=== PATIENT | male | born 2000 | race Caucasian/White ===

== ENCOUNTER 2023-09-26 15:45 | Emergency (ER) | payer BC, SELFPAY ==
[2023-09-26 15:46] VITALS: BP 123/79; PULSE 118; RESP 17; TEMP 36.9; O2SAT 97; BMI 31.3
[2023-09-26 16:30] VITALS: BP 102/47; PULSE 113; O2SAT 97
--- NOTE | 2023-09-26 16:54 | PC.NURSE ---
Pt given drink and crackers for PO challenge
--- NOTE | 2023-09-26 16:56 | HMH.EDGENADL ---
Discharge Plan Disposition Patient Disposition: Home, Self-Care Condition: Good Prescriptions Prescriptions: New pantoprazole 40 mg tablet,delayed release (DR/EC) 40 mg PO DAILY Qty: 30 0RF Zyrtec 10 mg capsule 10 mg PO DAILY Qty: 30 0RF fluticasone propionate [Flonase Allergy Relief] 50 mcg/actuation spray,suspension 1 spray intranasal BID Qty: 16 0RF Rx Instructions: administer into each nostril amoxicillin-pot clavulanate 875-125 mg tablet 1 tab PO BID Qty: 20 0RF ondansetron HCl 4 mg tablet 4 mg PO Q8H PRN (Reason: nausea and vomiting) 4 Days Qty: 12 0RF Referrals Follow up/Referrals: Oh Bran MD [Primary Care Provider] - See instructions Activity Restrictions/Add. Instructions Additional Instructions/Restrictions: You were evaluated in the emergency department today. 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 Make sure that you are staying hydrated. Follow-up with your primary care provider over the next week. Return to the emergency department for new or worsening symptoms. Clinical Impressions Clinical Impression: Sinusitis, Acute viral syndrome, Nausea & vomiting, Gastro-esophageal reflux Stand Alone Forms Stand Alone Forms: Work/School Release Instructions Patient Instructions: DI for Diarrhea and Traveler's Diarrhea -- Adult, DI for Viral Upper Respiratory Infection-Child, DI for Nausea -- Adult Discharge ED Provider: [facility] HPI General Chief complaint: Nausea/Vomiting/Diarrhea Stated complaint: vomitting, swollen Time Seen by Provider: 09/26/23 16:02 Mode of Arrival: Ambulatory Source of Information: Patient Limitations: No Limitations Description of Symptoms (Recalled from ER Triage Doc. by RN): pt to the ED with nausea and multiple episodes of vomiting since 11am this morning. pt is being treated for an upper respiratory infection since last week. History of Present Illness HPI narrative: This patient is a 22-year-old male presenting to the emergency department for evaluation with concern for multiple episodes of emesis since 11 AM this morning. Patient reports that he was diagnosed with an upper respiratory viral infection last week and was prescribed steroids, and he has been also taking Sudafed. The nausea and vomiting started today. He notes generalized abdominal pain and cramping, but no localized abdominal pain. No changes in bowel movements noted. He continues to have cough and congestion as well as a sore throat. No other concerns noted at this time. Related Data Previous Rx's Medication Instructions Recorded amoxicillin 875 mg-potassium 1 tab PO BID #20 tabs 09/26/23 clavulanate 125 mg tablet cetirizine 10 mg capsule (Zyrtec) 10 mg PO DAILY #30 caps 09/26/23 fluticasone propionate 50 1 spray intranasal BID #16 grams 09/26/23 mcg/actuation nasal spray,suspension (Flonase Allergy Relief) ondansetron HCl 4 mg tablet 4 mg PO Q8H PRN nausea and 09/26/23 vomiting 4 days #12 tabs pantoprazole 40 mg tablet,delayed 40 mg PO DAILY #30 tabs 09/26/23 release Allergies Allergy/AdvReac Type Severity Reaction Status Date / Time No Known Allergies Allergy Verified 05/17/18 16:24 [facility] Disclaimer: The information contained in this section may have been updated after the patient was seen, as this information can be updated by other users. Social History Smoking Status: Never smoker alcohol intake: never current occupational status: employed Travel in the last 8 weeks: None ROS Obtained: Yes All systems reviewed & no additional complaints except as documented Physical Exam General General appearance: alert and in no apparent distress Head Head exam: atraumatic and normocephalic Eye Eye exam: Present normal appearance, PERRL and EOMI ENT ENT exam: Present normal oropharynx, mucous membranes moist, normal external ear exam
[2023-09-26 17:01] VITALS: BP 119/81; PULSE 119; O2SAT 95
--- NOTE | 2023-09-26 17:08 | PC.NURSE ---
PT TOLERATING PO CRACKERS AND SPRITE, PT REPORTS FREQUENT BELCHING. MD AWARE, ORDERS RECEIVED AT THIS TIME
[2023-09-26 17:30] VITALS: BP 141/81; PULSE 112; O2SAT 95
[2023-09-26 17:48] VITALS: BP 141/88; PULSE 109; RESP 17; TEMP 37; O2SAT 98
== END 2023-09-26 18:01 | disposition home or self-care (01) ==
PROVIDERS: Emergency Provider Emergency Medicine; PCP Family Medicine
DX: R11.2 Nausea with vomiting, unspecified (principal); R10.84 Generalized abdominal pain; K21.9 Gastro-esophageal reflux disease without esophagitis; J01.90 Acute sinusitis, unspecified; B34.9 Viral infection, unspecified
CPT/HCPCS: 99283